=== PATIENT | male | born 1960 | race Caucasian/White ===

== ENCOUNTER 2020-06-24 19:09 | Inpatient (IN) | payer MEDICARE, MEDICAID ==
[~2020-06-24] VITALS: Ht 162.6 cm; Wt 86.6 kg
[~2020-06-24 19:09] MED LIST: AMLO2.5T45 PO; AMLO5TAB4 PO; ASPI-1497 PO; COR6 PO; FURO-152 PO; HYDR25TA PO; LOSA25TA26 PO; METO-385 PO; POTA10TA15 PO
[2020-06-24] MEDS ORDERED: IPRATROPIUM BROMIDE (0.02%) 0.5MG/2.5ML NEB HHN STA (21:53)
[2020-06-24] MEDS ORDERED: METHYLPREDNISOLONE SOD SUCC 125 MG/2 ML VIAL IV STA (21:53)
[2020-06-24] MEDS: ALBUTEROL (0.083%) 2.5MG/3ML NEB HHN SCH ×3 (22:30→23:00)
[2020-06-24 22:36] LABS: BASOPHILS % 0.3 % (0.0-2.0); EOSINOPHILS % 0.2 % (0.0-5.0); HEMATOCRIT. 37.4 % (42.0-52.0); HEMOGLOBIN. 12.5 g/dL (14.0-18.0); LYMPHOCYTES % 33.1 % (20.0-50.0); MEAN CORPUSCULAR HEMOGLOBIN 30.3 pg (28.0-32.0); MEAN CORPUSCULAR VOLUME 90.9 fL (80.0-94.0); MEAN PLATELET VOLUME 9.3 fl (7.4-10.4); MONOCYTES % 14.9 % (2.0-8.0); NEUTROPHILS % 51.5 % (40.0-76.0); PLATELET 217 x1000/uL (130-400); RED BLOOD CELL COUNT 4.12 mill/uL (4.7-6.1); RED CELL DISTRIBUTION WIDTH 14.4 % (11.6-14.6)
[2020-06-24 22:43] LABS: CHLORIDE 94 mEq/L (98-107)
[2020-06-24] MEDS ORDERED: SODIUM CHLORIDE 0.9% 1,000 ML IV ONE (23:15)
[2020-06-25] MEDS ORDERED: ONDANSETRON HCL 4MG/2ML INJ IV PRN (02:15)
[2020-06-25] MEDS ORDERED: DEXTROSE 50% WATER 50ML SYRINGE IV PRN (02:15)
[2020-06-25] MEDS ORDERED: DIPHENHYDRAMINE 50MG/ML VIAL IV PRN (02:15)
[2020-06-25] MEDS ORDERED: CLONIDINE 0.1MG TABLET PO PRN (02:15)
[2020-06-25] MEDS ORDERED: ACETAMINOPHEN 325MG TABLET PO PRN (02:15)
[2020-06-25] MEDS ORDERED: LOPERAMIDE HCL 2MG CAPSULE PO PRN (02:15)
[2020-06-25] MEDS ORDERED: ZOLPIDEM TARTRATE 5MG TABLET PO PRN (02:15)
[2020-06-25] MEDS: ENOXAPARIN 40MG/0.4ML SYR SUBCUT SCH (04:17)
[2020-06-25] MEDS: SODIUM CHLORIDE 0.9% INJ 3ML FLUSH IVF SCH ×3 (06:03→20:58)
[2020-06-25] MEDS: BLOOD SUGAR DIAGNOSTIC STRIP TEST SCH ×4 (09:00→20:59)
[2020-06-25] MEDS: INSULIN LISPRO 100 UNITS/ML SUBCUT SCH ×4 (09:00→20:59)
[2020-06-25 13:20] VITALS: BP 145/71
[2020-06-25] MEDS: ACETAMINOPHEN 325MG TABLET PO PRN (14:08)
[2020-06-25 16:00] VITALS: BP 111/59
[2020-06-25 20:00] VITALS: BP 154/71
[2020-06-25] MEDS: ERGOCALCIFEROL 50000UNITS CAPSULE PO SCH (20:58)
[2020-06-26] VITALS: BP 134/66
[2020-06-26] MEDS: ENOXAPARIN 40MG/0.4ML SYR SUBCUT SCH (02:47)
[2020-06-26 04:00] VITALS: BP 112/55
[2020-06-26] MEDS: SODIUM CHLORIDE 0.9% INJ 3ML FLUSH IVF SCH ×3 (06:00→20:53)
[2020-06-26] MEDS: BLOOD SUGAR DIAGNOSTIC STRIP TEST SCH ×4 (06:53→21:49)
[2020-06-26] MEDS: INSULIN LISPRO 100 UNITS/ML SUBCUT SCH ×4 (07:54→21:00)
[2020-06-26 08:00] VITALS: BP 160/60
[2020-06-26 09:20] LABS: BASOPHILS % 0.3 % (0.0-2.0); EOSINOPHILS % 0.2 % (0.0-5.0); HEMATOCRIT. 36.8 % (42.0-52.0); HEMOGLOBIN. 12.1 g/dL (14.0-18.0); LYMPHOCYTES % 18.1 % (20.0-50.0); MEAN CORPUSCULAR HEMOGLOBIN 29.8 pg (28.0-32.0); MEAN CORPUSCULAR VOLUME 90.5 fL (80.0-94.0); MEAN PLATELET VOLUME 8.4 fl (7.4-10.4); MONOCYTES % 9.4 % (2.0-8.0); PLATELET 282 x1000/uL (130-400); RED BLOOD CELL COUNT 4.06 mill/uL (4.7-6.1); RED CELL DISTRIBUTION WIDTH 14.4 % (11.6-14.6)
[2020-06-26 12:00] VITALS: BP 144/76
[2020-06-26 16:00] VITALS: BP 131/71
[2020-06-26 20:00] VITALS: BP 139/77
[2020-06-27] VITALS: BP 144/64
[2020-06-27] MEDS: ENOXAPARIN 40MG/0.4ML SYR SUBCUT SCH (03:52)
[2020-06-27 04:00] VITALS: BP 149/70
[2020-06-27] MEDS: SODIUM CHLORIDE 0.9% INJ 3ML FLUSH IVF SCH ×3 (05:09→21:16)
[2020-06-27] MEDS: ACETAMINOPHEN 325MG TABLET PO PRN (05:09)
[2020-06-27] MEDS: BLOOD SUGAR DIAGNOSTIC STRIP TEST SCH ×4 (06:12→21:15)
[2020-06-27 08:00] VITALS: BP 135/75
[2020-06-27] MEDS: INSULIN LISPRO 100 UNITS/ML SUBCUT SCH ×4 (08:04→21:00)
[2020-06-27 12:00] VITALS: BP 154/72
[2020-06-27 16:00] VITALS: BP 155/80
[2020-06-27 20:00] VITALS: BP 103/73
[2020-06-28] VITALS (7 sets, daily range): BP systolic 142–155; BP diastolic 64–81
[2020-06-28] MEDS: SODIUM CHLORIDE 0.9% INJ 3ML FLUSH IVF SCH ×3 (05:36→22:47)
[2020-06-28] MEDS: BLOOD SUGAR DIAGNOSTIC STRIP TEST SCH ×4 (06:28→21:00)
[2020-06-28] MEDS: INSULIN LISPRO 100 UNITS/ML SUBCUT SCH ×4 (07:50→22:46)
[2020-06-28] MEDS: METOPROLOL TARTRATE 25MG TABLET PO SCH ×2 (09:33→22:48)
[2020-06-28] MEDS: ENOXAPARIN 30MG/0.3ML SYR SUBCUT SCH (09:33)
[2020-06-28] MEDS: SUCRALFATE 1 G/10 ML UDC PO SCH ×3 (16:33→22:47)
[2020-06-29] MEDS: SUCRALFATE 1 G/10 ML UDC PO SCH ×4 (06:14→21:20)
[2020-06-29] MEDS: SODIUM CHLORIDE 0.9% INJ 3ML FLUSH IVF SCH ×3 (06:15→21:21)
[2020-06-29] MEDS: BLOOD SUGAR DIAGNOSTIC STRIP TEST SCH ×4 (06:30→21:20)
[2020-06-29] MEDS: INSULIN LISPRO 100 UNITS/ML SUBCUT SCH ×4 (06:30→21:21)
[2020-06-29 08:00] VITALS: BP 140/73
[2020-06-29] MEDS: ENOXAPARIN 30MG/0.3ML SYR SUBCUT SCH (09:46)
[2020-06-29] MEDS: METOPROLOL TARTRATE 25MG TABLET PO SCH ×2 (09:47→21:21)
[2020-06-29 20:00] VITALS: BP 129/62
[2020-06-30] MEDS: SODIUM CHLORIDE 0.9% INJ 3ML FLUSH IVF SCH ×3 (05:07→21:01)
[2020-06-30] MEDS: BLOOD SUGAR DIAGNOSTIC STRIP TEST SCH ×4 (05:39→21:01)
[2020-06-30] MEDS: SUCRALFATE 1 G/10 ML UDC PO SCH ×4 (05:39→21:00)
[2020-06-30] MEDS: INSULIN LISPRO 100 UNITS/ML SUBCUT SCH ×4 (05:42→20:57)
[2020-06-30 08:00] VITALS: BP 143/56
[2020-06-30] MEDS: METOPROLOL TARTRATE 25MG TABLET PO SCH ×2 (09:20→21:00)
[2020-06-30] MEDS: ENOXAPARIN 30MG/0.3ML SYR SUBCUT SCH (09:20)
[2020-06-30 20:43] VITALS: BP 139/71
[2020-07-01] MEDS: SODIUM CHLORIDE 0.9% INJ 3ML FLUSH IVF SCH ×3 (06:04→21:01)
[2020-07-01] MEDS: SUCRALFATE 1 G/10 ML UDC PO SCH ×3 (06:20→17:27)
[2020-07-01] MEDS: INSULIN LISPRO 100 UNITS/ML SUBCUT SCH ×4 (06:23→21:00)
[2020-07-01] MEDS: BLOOD SUGAR DIAGNOSTIC STRIP TEST SCH ×4 (06:23→21:01)
[2020-07-01 08:00] VITALS: BP 150/62
[2020-07-01] MEDS: METOPROLOL TARTRATE 25MG TABLET PO SCH ×2 (09:00→21:00)
[2020-07-01] MEDS: ENOXAPARIN 30MG/0.3ML SYR SUBCUT SCH (09:02)
[2020-07-01 20:00] VITALS: BP 142/69
[2020-07-02] MEDS: SODIUM CHLORIDE 0.9% INJ 3ML FLUSH IVF SCH ×3 (04:26→22:20)
[2020-07-02 06:11] LABS: HEMATOCRIT 34.6 % (42.0-52.0); HEMOGLOBIN 11.6 g/dL (14.0-18.0); MEAN CORPUSCULAR HEMOGLOBIN 30.6 pg (28.0-32.0); MEAN CORPUSCULAR VOLUME 90.9 fL (80.0-94.0); PLATELET 430 x1000/uL (130-400); RED CELL DISTRIBUTION WIDTH 14.2 % (11.6-14.6)
[2020-07-02] MEDS: BLOOD SUGAR DIAGNOSTIC STRIP TEST SCH ×4 (06:53→21:00)
[2020-07-02 08:00] VITALS: BP 146/57
[2020-07-02] MEDS: METOPROLOL TARTRATE 25MG TABLET PO SCH (09:08)
[2020-07-02] MEDS: SUCRALFATE 1 G/10 ML UDC PO SCH ×2 (09:08→17:13)
[2020-07-02] MEDS: ENOXAPARIN 30MG/0.3ML SYR SUBCUT SCH (09:08)
[2020-07-02] MEDS: INSULIN LISPRO 100 UNITS/ML SUBCUT SCH ×4 (09:09→22:19)
[2020-07-02 19:02] LABS: HEPATITIS B SURFACE ANTIGEN NEGATIVE
[2020-07-02 19:32] LABS: HEPATITIS A AB IGM NEGATIVE (NEGATIVE)
[2020-07-02 20:00] VITALS: BP 146/78
[2020-07-02] MEDS: ERGOCALCIFEROL 50000UNITS CAPSULE PO SCH (22:00)
[2020-07-02] MEDS: METOPROLOL TARTRATE 50MG TABLET PO SCH (22:10)
[2020-07-03] MEDS: SODIUM CHLORIDE 0.9% INJ 3ML FLUSH IVF SCH ×3 (06:51→22:00)
[2020-07-03] MEDS: BLOOD SUGAR DIAGNOSTIC STRIP TEST SCH ×4 (06:51→21:00)
[2020-07-03 08:00] VITALS: BP 144/71
[2020-07-03] MEDS: ENOXAPARIN 30MG/0.3ML SYR SUBCUT SCH (08:55)
[2020-07-03] MEDS: METOPROLOL TARTRATE 50MG TABLET PO SCH ×2 (08:55→23:25)
[2020-07-03] MEDS: SUCRALFATE 1 G/10 ML UDC PO SCH ×2 (08:55→17:54)
[2020-07-03] MEDS: INSULIN LISPRO 100 UNITS/ML SUBCUT SCH ×4 (08:56→23:25)
[2020-07-03 20:00] VITALS: BP 140/68
[2020-07-04] MEDS: SODIUM CHLORIDE 0.9% INJ 3ML FLUSH IVF SCH ×2 (06:02→13:34)
[2020-07-04] MEDS: BLOOD SUGAR DIAGNOSTIC STRIP TEST SCH ×3 (06:11→17:28)
[2020-07-04 08:00] VITALS: BP 122/69
[2020-07-04] MEDS: ENOXAPARIN 30MG/0.3ML SYR SUBCUT SCH (08:41)
[2020-07-04] MEDS: SUCRALFATE 1 G/10 ML UDC PO SCH ×2 (08:41→17:29)
[2020-07-04] MEDS: METOPROLOL TARTRATE 50MG TABLET PO SCH (08:41)
[2020-07-04] MEDS: INSULIN LISPRO 100 UNITS/ML SUBCUT SCH ×3 (08:51→17:33)
[2020-07-04 17:36] VITALS: BP 122/69
== END 2020-07-04 18:58 | disposition home or self-care (01) | DRG 177 ==
LOC: ER 19:09 → 7WST 06-25 01:06 → ENRESERV 06-25 10:28 → 6WST 06-28 23:25
PROVIDERS: ADMIT Internal Medicine; ATTEND Internal Medicine
PROC: 5A1D70Z Performance of Urinary Filtration, Intermittent, Less than 6 Hours Per Day (ICD-10-PCS; principal; 2020-06-25)
PROC: 5A1D70Z Performance of Urinary Filtration, Intermittent, Less than 6 Hours Per Day (ICD-10-PCS; 2020-06-27)
PROC: 5A1D70Z Performance of Urinary Filtration, Intermittent, Less than 6 Hours Per Day (ICD-10-PCS; 2020-06-30)
PROC: 5A1D70Z Performance of Urinary Filtration, Intermittent, Less than 6 Hours Per Day (ICD-10-PCS; 2020-07-03)
DX: U07.1 COVID-19 (principal); J12.82 Pneumonia due to coronavirus disease 2019; N18.6 End stage renal disease; I21.A1 Myocardial infarction type 2; I13.2 Hypertensive heart and chronic kidney disease with heart failure and with stage 5 chronic kidney disease, or end stage renal disease; E87.1 Hypo-osmolality and hyponatremia; E11.22 Type 2 diabetes mellitus with diabetic chronic kidney disease; E78.5 Hyperlipidemia, unspecified; I50.9 Heart failure, unspecified; R19.7 Diarrhea, unspecified; E78.00 Pure hypercholesterolemia, unspecified; K21.9 Gastro-esophageal reflux disease without esophagitis; Z99.2 Dependence on renal dialysis; Z79.82 Long term (current) use of aspirin; Z79.899 Other long term (current) drug therapy
CPT/HCPCS: 36415; 71045; 80048; 80053; 82962; 83036; 83880; 84145; 84484; 85025; 85027; 86140; 86705; 86706; 86709; 86803; 87340; 87635; 93005; 99291; J1650; J1815; J7030

== ENCOUNTER 2020-07-06 04:17 | Inpatient (IN) | payer MEDICARE, MEDICAID ==
[~2020-07-06] VITALS: Ht 160 cm; Wt 83.9 kg
[2020-07-06 05:34] LABS: BASOPHILS % 0.3 % (0.0-2.0); EOSINOPHILS % 0.9 % (0.0-5.0); HEMATOCRIT. 36.9 % (42.0-52.0); HEMOGLOBIN. 12.1 g/dL (14.0-18.0); LYMPHOCYTES % 23.8 % (20.0-50.0); MEAN CORPUSCULAR HEMOGLOBIN 30.1 pg (28.0-32.0); MEAN CORPUSCULAR VOLUME 91.4 fL (80.0-94.0); MEAN PLATELET VOLUME 8.6 fl (7.4-10.4); MONOCYTES % 7.7 % (2.0-8.0); NEUTROPHILS % 67.3 % (40.0-76.0); PLATELET 506 x1000/uL (130-400); RED BLOOD CELL COUNT 4.03 mill/uL (4.7-6.1); RED CELL DISTRIBUTION WIDTH 14.5 % (11.6-14.6)
[2020-07-06 05:37] LABS: CHLORIDE 96 mEq/L (98-107)
[2020-07-06 08:49] LABS: BG SAMPLE SITE LEFT RADIAL; BG VENT MODE NASAL CANNULA
[2020-07-06 08:59] LABS: BG BASE EXCESS -0.2 mmol/L (-2.0-2.0); BG HCO3 ACT 24.9 mmol/L (22.0-26.0); BG PCO2 42.5 mmHg (35.0-45.0); BG PH 7.386 (7.350-7.450)
[2020-07-06 09:00] LABS: BG CARBOXYHEMOGLOBIN 0.3 % (0.5-1.5); BG DEOXYHEMOGLOBIN 1.4 % (0.0-5.0); BG METHEMOGLOBIN 0.3 % (0.0-1.5); BG OXYGEN SATURATION 98.6 % (92.0-98.5); BG TOTAL HEMOGLOBIN 11.2 g/dL (12.0-18.0)
[2020-07-06 12:00] VITALS: BP_SYST 138; BP_SYST 141; BP_DIAS 77
[2020-07-06] MEDS ORDERED: ONDANSETRON HCL 4MG/2ML INJ IV PRN (12:45)
[2020-07-06] MEDS ORDERED: ACETAMINOPHEN 325MG TABLET PO PRN (12:45)
[2020-07-06] MEDS ORDERED: BENZONATATE 100MG CAPSULE PO PRN (13:00)
[2020-07-06] MEDS ORDERED: GUAIFENESIN-DM 200MG-20MG/10ML UDC PO PRN (13:00)
[2020-07-06 14:56] LABS: BG BASE EXCESS 1.5 mmol/L (-2.0-2.0); BG CARBOXYHEMOGLOBIN 0.3 % (0.5-1.5); BG DEOXYHEMOGLOBIN 10.4 % (0.0-5.0); BG FRACTION INSPIRED OXYGEN 21; BG HCO3 ACT 25.7 mmol/L (22.0-26.0); BG METHEMOGLOBIN 0.3 % (0.0-1.5); BG OXYGEN SATURATION 89.5 % (92.0-98.5); BG PCO2 38.9 mmHg (35.0-45.0); BG PH 7.438 (7.350-7.450); BG PO2 54.1 mmHg (75.0-100.0); BG SAMPLE SITE RIGHT BRACHIAL; BG TOTAL HEMOGLOBIN 11.6 g/dL (12.0-18.0); BG VENT MODE ROOM AIR
[2020-07-06 16:00] VITALS: BP 147/79
[2020-07-06] MEDS: DEXAMETHASONE 6MG TABLET PO SCH (16:58)
[2020-07-06] MEDS: ENOXAPARIN 30MG/0.3ML SYR SUBCUT SCH (16:58)
[2020-07-06] MEDS ORDERED: DEXTROSE 50% WATER 50ML SYRINGE IV PRN (19:00)
[2020-07-06 20:00] VITALS: BP 152/78
[2020-07-06] MEDS: BLOOD SUGAR DIAGNOSTIC STRIP TEST SCH (21:00)
[2020-07-06] MEDS: GUAIFENESIN 600MG ER TABLET PO SCH (21:55)
[2020-07-06] MEDS: INSULIN LISPRO 100 UNITS/ML SUBCUT SCH (22:55)
[2020-07-07] VITALS: BP 115/66
[2020-07-07 04:00] VITALS: BP 141/53
[2020-07-07] MEDS: BLOOD SUGAR DIAGNOSTIC STRIP TEST SCH ×2 (06:40→12:05)
[2020-07-07] MEDS: INSULIN LISPRO 100 UNITS/ML SUBCUT SCH ×2 (06:47→12:13)
[2020-07-07 08:00] VITALS: BP 134/63
[2020-07-07] MEDS: ENOXAPARIN 30MG/0.3ML SYR SUBCUT SCH (08:13)
[2020-07-07] MEDS: GUAIFENESIN 600MG ER TABLET PO SCH (08:13)
[2020-07-07] MEDS: DEXAMETHASONE 6MG TABLET PO SCH (08:13)
[2020-07-07] MEDS ORDERED: INSULIN GLARGINE UD 100 UNITS/ML SYR SUBCUT SCH ×2 (13:00→22:00)
[2020-07-07 15:30] VITALS: BP 145/73
== END 2020-07-07 16:26 | disposition home or self-care (01) | DRG 177 ==
LOC: ER 05:14 → 8WST 08:59 → ENRESERV 11:16
PROVIDERS: ADMIT Internal Medicine Nephrology; ATTEND Internal Medicine Nephrology
PROC: 5A1D70Z Performance of Urinary Filtration, Intermittent, Less than 6 Hours Per Day (ICD-10-PCS; principal; 2020-07-06)
DX: U07.1 COVID-19 (principal); J96.00 Acute respiratory failure, unspecified whether with hypoxia or hypercapnia; E43 Unspecified severe protein-calorie malnutrition; J12.82 Pneumonia due to coronavirus disease 2019; N18.6 End stage renal disease; E87.1 Hypo-osmolality and hyponatremia; E87.2 Acidosis; I12.0 Hypertensive chronic kidney disease with stage 5 chronic kidney disease or end stage renal disease; D64.9 Anemia, unspecified; E11.22 Type 2 diabetes mellitus with diabetic chronic kidney disease; E87.8 Other disorders of electrolyte and fluid balance, not elsewhere classified; Z99.2 Dependence on renal dialysis; Z79.899 Other long term (current) drug therapy; Z79.82 Long term (current) use of aspirin
CPT/HCPCS: 36415; 36600; 71045; 80053; 82375; 82805; 82962; 83605; 83880; 84145; 84484; 85025; 85379; 93005; 99291; J1650; J1815; U0003

== ENCOUNTER 2021-08-25 17:33 | Emergency (ER) | payer MEDICARE, MEDICAID ==
[~2021-08-25] VITALS: Ht 175.3 cm; Wt 82.0 kg
[2021-08-25 17:36] VITALS: BP 150/84
[2021-08-25] MEDS ORDERED: LORAZEPAM 0.5MG TABLET PO ONE (17:45)
[2021-08-25] MEDS ORDERED: MAGNESIUM/ALUMINUM HYDROXIDE/SIMETHICONE 30ML UDC PO STA (19:48)
[2021-08-25] MEDS ORDERED: FAMOTIDINE 20MG TABLET PO ONE (20:00)
[2021-08-25 21:28] LABS: BASOPHILS % 0.4 % (0.0-2.0); EOSINOPHILS % 0.1 % (0.0-5.0); HEMATOCRIT. 41.1 % (42.0-52.0); HEMOGLOBIN. 13.3 g/dL (14.0-18.0); LYMPHOCYTES % 10.7 % (20.0-50.0); MEAN CORPUSCULAR VOLUME 80.6 fL (80.0-94.0); MEAN PLATELET VOLUME 7.9 fl (7.4-10.4); MONOCYTES % 6.7 % (2.0-8.0); NEUTROPHILS % 82.1 % (40.0-76.0); PLATELET 232 x1000/uL (130-400); RED CELL DISTRIBUTION WIDTH 20.6 % (11.6-14.6)
[2021-08-25 21:35] LABS: CHLORIDE 95 mEq/L (98-107)
== END 2021-08-25 20:54 | disposition left against medical advice (07) ==
LOC: ER 17:33
DX: I13.2 Hypertensive heart and chronic kidney disease with heart failure and with stage 5 chronic kidney disease, or end stage renal disease (principal); I50.9 Heart failure, unspecified; R74.8 Abnormal levels of other serum enzymes; E87.1 Hypo-osmolality and hyponatremia; E11.22 Type 2 diabetes mellitus with diabetic chronic kidney disease; N18.6 End stage renal disease; Z99.2 Dependence on renal dialysis; Z79.82 Long term (current) use of aspirin; Z79.84 Long term (current) use of oral hypoglycemic drugs; Z79.899 Other long term (current) drug therapy
CPT/HCPCS: 36415; 71045; 80053; 83880; 84484; 85025; 99284

== ENCOUNTER → 2021-12-19 | Day surgery (SDC) | payer MEDICARE, MEDICAID ==
[~2021-12-19] VITALS: Ht 162.6 cm; Wt 81.6 kg
[~2021-12-19] MED LIST changes: -AMLO2.5T45 PO; +ATOR-2 PO; +BACITRACIN 15GM TUBE TOP ONE; +BUPIVACAINE HCL/PF 0.5% (5MG/ML) 10ML ONE; +CARV25TA47 PO; -COR6 PO; +DEXAMETHASONE 4MG/ML 1ML VIAL ONE; +FENTANYL CITRATE/PF 50MCG/ML 2ML VIAL IV PRN; +FENTANYL CITRATE/PF 50MCG/ML 2ML VIAL ONE; -FURO-152 PO; +GABA-532 PO; +GLYCOPYRROLATE 0.2 MG/ML 2ML VIAL IV PRN; +HEPARIN 1000 UNITS/ML 10ML ONE; +HEPARIN SODIUM 1,000 UNIT/1ML VIAL IV ONE; +IBUPROFEN 200MG TABLET PO PRN; +INSU100I41 SUBCUT; +LIDOCAINE HCL 1% 20ML VIAL (Pyxis) INJ ONE; +LIDOCAINE HCL 1% 50ML VIAL (10MG/ML) ONE; +LIDOCAINE HCL 2% JELLY 5ML ONE; -LOSA25TA26 PO; -METO-385 PO; +MIDAZOLAM HCL 2 MG/2 ML VIAL ONE; +NITR0.4T49 SL; +ONDANSETRON HCL 4MG/2ML INJ IV PRN; +ONDANSETRON HCL 4MG/2ML INJ ONE; +POLYMYXIN B SULFATE 500000 UNITS/VIAL ONE; -POTA10TA15 PO; +PROPOFOL 200MG/20ML VIAL IV ONE; +PROTAMINE SULFATE 10MG/ML VIAL 5ML IV ONE; +RANO10003 PO; +SODIUM CHLORIDE 0.9% 250 ML IV SCH; +SODIUM CHLORIDE 0.9% 500 ML IV ONE; +THROMBIN (BOVINE) 5000 UNITS/VIAL TOP ONE; +TOPUD PO
[2021-12-19 06:05] LABS: BASOPHILS % 1.6 % (0.0-2.0); EOSINOPHILS % 7.4 % (0.0-5.0); HEMATOCRIT. 35.2 % (42.0-52.0); HEMOGLOBIN. 11.4 g/dL (14.0-18.0); LYMPHOCYTES % 22.8 % (20.0-50.0); MEAN CORPUSCULAR HEMOGLOBIN 28.2 pg (28.0-32.0); MEAN CORPUSCULAR VOLUME 87.2 fL (80.0-94.0); MEAN PLATELET VOLUME 8.8 fl (7.4-10.4); NEUTROPHILS % 54.2 % (40.0-76.0); PLATELET 148 x1000/uL (130-400); RED BLOOD CELL COUNT 4.03 mill/uL (4.7-6.1); RED CELL DISTRIBUTION WIDTH 24.8 % (11.6-14.6)
[2021-12-19 06:08] LABS: INR 1.1; PARTIAL THROMBOPLASTIN TIME 27.9 sec (23.4-31.0); PROTHROMBIN TIME 11.7 sec (9.6-11.0)
[2021-12-19 07:17] LABS: PLATELET ESTIMATE NORMAL
== END | disposition home or self-care (01) ==
LOC: OR 05:24
PROVIDERS: ATTEND Surgery Vascular Surgery
DX: T82.898A Other specified complication of vascular prosthetic devices, implants and grafts, initial encounter (principal); I13.2 Hypertensive heart and chronic kidney disease with heart failure and with stage 5 chronic kidney disease, or end stage renal disease; I50.9 Heart failure, unspecified; N18.6 End stage renal disease; E11.22 Type 2 diabetes mellitus with diabetic chronic kidney disease; E78.5 Hyperlipidemia, unspecified; I25.10 Atherosclerotic heart disease of native coronary artery without angina pectoris; Z20.822 Contact with and (suspected) exposure to COVID-19; Z79.899 Other long term (current) drug therapy; Z79.84 Long term (current) use of oral hypoglycemic drugs; Z98.890 Other specified postprocedural states; X58.XXXA Exposure to other specified factors, initial encounter; Y93.89 Activity, other specified; Y92.89 Other specified places as the place of occurrence of the external cause; Y99.8 Other external cause status
CPT/HCPCS: 36415; 36832; 80048; 84132; 85025; 85610; 85730; 87426; 93005; C1768; C9803; J1100; J1644; J2250; J2405; J2704; J2720; J3010; J3490; J7040

== ENCOUNTER 2022-02-24 22:07 | Emergency (ER) | payer MEDICARE, MEDICAID ==
[~2022-02-24] VITALS: Ht 157.5 cm; Wt 80.0 kg
[~2022-02-24 22:07] MED LIST changes: -BACITRACIN 15GM TUBE TOP ONE; -BUPIVACAINE HCL/PF 0.5% (5MG/ML) 10ML ONE; -DEXAMETHASONE 4MG/ML 1ML VIAL ONE; -FENTANYL CITRATE/PF 50MCG/ML 2ML VIAL IV PRN; -FENTANYL CITRATE/PF 50MCG/ML 2ML VIAL ONE; -GLYCOPYRROLATE 0.2 MG/ML 2ML VIAL IV PRN; -HEPARIN 1000 UNITS/ML 10ML ONE; -HEPARIN SODIUM 1,000 UNIT/1ML VIAL IV ONE; -IBUPROFEN 200MG TABLET PO PRN; -LIDOCAINE HCL 1% 20ML VIAL (Pyxis) INJ ONE; -LIDOCAINE HCL 1% 50ML VIAL (10MG/ML) ONE; -LIDOCAINE HCL 2% JELLY 5ML ONE; -MIDAZOLAM HCL 2 MG/2 ML VIAL ONE; -ONDANSETRON HCL 4MG/2ML INJ IV PRN; -ONDANSETRON HCL 4MG/2ML INJ ONE; -POLYMYXIN B SULFATE 500000 UNITS/VIAL ONE; -PROPOFOL 200MG/20ML VIAL IV ONE; -PROTAMINE SULFATE 10MG/ML VIAL 5ML IV ONE; -SODIUM CHLORIDE 0.9% 250 ML IV SCH; -SODIUM CHLORIDE 0.9% 500 ML IV ONE; -THROMBIN (BOVINE) 5000 UNITS/VIAL TOP ONE
[2022-02-25 06:01] LABS: BASOPHILS % 0.7 % (0.0-2.0); EOSINOPHILS % 3.5 % (0.0-5.0); HEMOGLOBIN. 15.9 g/dL (14.0-18.0); LYMPHOCYTES % 27.7 % (20.0-50.0); MEAN CORPUSCULAR HEMOGLOBIN 29.1 pg (28.0-32.0); MEAN CORPUSCULAR VOLUME 89.8 fL (80.0-94.0); MEAN PLATELET VOLUME 9.7 fl (7.4-10.4); MONOCYTES % 12.8 % (2.0-8.0); NEUTROPHILS % 55.3 % (40.0-76.0); PLATELET 148 x1000/uL (130-400); RED BLOOD CELL COUNT 5.46 mill/uL (4.7-6.1); RED CELL DISTRIBUTION WIDTH 20.2 % (11.6-14.6)
[2022-02-25] MEDS ORDERED: HYDR-4001 MT (07:32)
[2022-02-25 08:35] VITALS: BP 142/72
== END 2022-02-25 08:40 | disposition home or self-care (01) ==
LOC: ER 22:07
DX: S52.532A Colles' fracture of left radius, initial encounter for closed fracture (principal); S80.02XA Contusion of left knee, initial encounter; E11.22 Type 2 diabetes mellitus with diabetic chronic kidney disease; I12.0 Hypertensive chronic kidney disease with stage 5 chronic kidney disease or end stage renal disease; N18.6 End stage renal disease; Z99.2 Dependence on renal dialysis; Z95.1 Presence of aortocoronary bypass graft; Z79.82 Long term (current) use of aspirin; Z79.4 Long term (current) use of insulin; W01.0XXA Fall on same level from slipping, tripping and stumbling without subsequent striking against object, initial encounter; Y93.89 Activity, other specified; Y92.018 Other place in single-family (private) house as the place of occurrence of the external cause
CPT/HCPCS: 29125; 36415; 73110; 73130; 73562; 80048; 85025; 93005; 99285; A4565